=== PATIENT | male | born 1980 | race Caucasian/White ===

== ENCOUNTER → 2022-09-14 12:22 | Outpatient (CLI) | payer OTHER, MEDICAID, SELFPAY ==
[2022-09-15 08:11] LABS: Add Manual Diff / Slide Review NO; Basophils Absolute Auto 100 /uL (0-100); Basophils Percent Auto 1.8 % (0-2); Eosinophils Absolute Auto 200 /uL (0-450); Eosinophils Percent Auto 3.3 % (2-4); Hematocrit 43.4 % (41-53); Hemoglobin 14.9 g/dL (13.5-17.5); Lymphocytes Absolute Auto 1700 /uL (1100-4500); Lymphocytes Percent Auto 28.6 % (25-40); Mean Corpuscular HGB Conc 34.4 % (30-36); Mean Corpuscular Hemoglobin 33.9 PG (26-34); Mean Corpuscular Volume 98.6 fL (80-100); Monocytes Absolute Auto 500 /uL (0-900); Monocytes Percent Auto 8.5 % (3-14); Neutrophils Absolute Auto 3400 /uL (1500-7000); Neutrophils Percent Auto 57.8 % (50-75); Platelet Count 246 X10^3/uL (150-400); Red Cell Distribution Width 13.5 % (11.6-14.8); White Blood Cell Count 5.8 X10^3/uL (4.5-11.0)
[2022-09-15 08:18] LABS: BUN Creatinine Ratio 20.3 (6-22); Blood Urea Nitrogen 13 mg/dL (9-20); Calcium 9.6 mg/dL (8.4-10.2); Carbon Dioxide 27 mmol/L (22-32); Chloride 100 mmol/L (98-107); Cholesterol 202 mg/dL (140-199); Estimated Glomerular Filt Rate > 60 mL/min (>60); Glucose 76 mg/dL (70-100); HDL Cholesterol 104 mg/dL (40-60); HEMOLYSIS < 15 (0-50); LDL Cholesterol Calculated 86 mg/dL (<100); Sodium 141 mmol/L (137-145); Triglycerides 60 mg/dL (35-150)
[2022-09-15 09:59] LABS: Vitamin B12 280 pg/mL (239-931)
== END ==
PROVIDERS: PCP Family Medicine; Visit Provider Family Medicine
DX: G62.9 Polyneuropathy, unspecified (principal); Z13.1 Encounter for screening for diabetes mellitus; Z13.220 Encounter for screening for lipoid disorders; Z13.6 Encounter for screening for cardiovascular disorders
CPT/HCPCS: 80048; 80061; 82607; 85025

== ENCOUNTER 2023-05-16 15:22 | Emergency (ER) | payer OTHER, MEDICAID, SELFPAY ==
[2023-05-16 15:35] VITALS: BP 133/83; PULSE 89; RESP 18; TEMP 36.8; O2SAT 99; BMI 23.1
--- NOTE | 2023-05-16 15:40 | DI.RAD.S_ITS ---
PROCEDURE: XR KNEE RT 3V INDICATIONS: felt/heard a pop TECHNIQUE: 3 views of the knee were acquired. COMPARISON: None. FINDINGS: Bones: No fractures or dislocations. No suspicious bony lesions. Soft tissues: Small joint effusion. No suspicious soft tissue calcifications. IMPRESSION: No acute osseous abnormality. If pain persists with conservative management, consider repeat x-ray in 10-14 days or cross-sectional imaging. Dictated by: Tera Vasquez M.D. on 05/16/2023 at 16:22 Approved by: Tera Vasquez M.D. on 05/16/2023 at 16:23
[2023-05-16 17:40] VITALS: BP 124/78; PULSE 80; RESP 16; O2SAT 97
--- NOTE | 2023-05-16 19:01 | ED.LOWEXIN ---
HPI - Extremity Injury (Lower) General Chief Complaint: Extremity Injury, Lower Stated Complaint: RT KNEE INJURY Time Seen by Provider: 05/16/23 17:11 Source: patient Mode of arrival: other History of Present Illness HPI Narrative: Patient is a 42-year-old male who presents with a right knee injury. He was painting days ago while kneeling on the ground and moved his knee laterally when he felt 3 pops. Since then he has been trying to rest it and taking ibuprofen intermittently. Knee is quite swollen. It is very painful to walk. Has a history of similar knee injuries in the past that resolved on their own. His pain has been 8-9/10 over the past 4 days. He lives on [address] and attempted to see his primary care there, they referred him to [facility], suggesting he would need an MRI or CT scan. Related Data Previous Rx's Medication Instructions Recorded sulfamethoxazole 800 1 tab PO BID #10 tabs 02/28/23 mg-trimethoprim 160 mg tablet (Bactrim DS) cyclobenzaprine 10 mg tablet See Rx Instructions PO BEDTIME #60 05/09/23 tabs hydrocodone 5 mg-acetaminophen 325 1 tab PO Q4-6H PRN pain #14 tabs 05/16/23 mg tablet Allergies Allergy/AdvReac Type Severity Reaction Status Date / Time No Known Drug Allergies Allergy Verified 04/11/23 13:47 Review of Systems Review of Systems ROS Unobtainable: All systems reviewed & are unremarkable except as noted in HPI and below Patient History Medical History Sleep apnea Chronic cough Depression Seizures Restless leg syndrome Migraines Fractures Chronic back pain Carpal tunnel syndrome Tinnitus Retinal detachment Surgical History Anesthesia Suture of skin wound History of removal of cyst Suture of skin wound Family History Mother Cancer Grandfather Cancer Grandmother Cancer Social History Smoking Status: Current every day smoker Smoking Status: Current every day smoker tobacco type: cigarettes alcohol intake frequency: a few times a week Substance Use Type: does not use Exam Narrative Exam Narrative: GENERAL: 42 year old patient appears stated age. Well-developed patient, in no distress. NEURO: AOx3. HEAD: Atraumatic. Normocephalic. EYES: Pupils equal round and reactive. Extraocular motions intact. No scleral icterus. No injection or drainage. ENT: Nose without bleeding or purulent drainage. Airway patent. RESPIRATORY: No distress. EXTREMITIES: Significant edema of the right knee. Tenderness over the lateral joint line. Pain with extension and flexion, ambulation. Distal pulses, sensation and motor intact. SKIN: No rash or erythema of visible areas Initial Vital Signs Initial Vital Signs: Vital Signs Temperature 98.3 F 05/16/23 15:35 Pulse Rate 89 05/16/23 15:35 Respiratory Rate 18 05/16/23 15:35 Blood Pressure 133/83 05/16/23 15:35 Pulse Oximetry 99 05/16/23 15:35 Oxygen Delivery Method Room Air 05/16/23 15:35 Course Orders Ordered: ED Orders 05/16/23 15:40 XR knee RT 3V Stat Vital Signs Vital signs: Vital Signs - 8 hr 05/16/23 15:35 05/16/23 17:40 Temperature 98.3 F Pulse Rate 89 80 Respiratory Rate 18 16 Blood Pressure 133/83 124/78 Pulse Oximetry 99 97 Oxygen Delivery Method Room Air Room Air MDM - Extremity Injury (Lower) Imaging Data Extremity x-ray #1: Radiologist's Impression: PROCEDURE: XR KNEE RT 3V INDICATIONS: felt/heard a pop TECHNIQUE: 3 views of the knee were acquired. COMPARISON: None. FINDINGS: Bones: No fractures or dislocations. No suspicious bony lesions. Soft tissues: Small joint effusion. No suspicious soft tissue calcifications. IMPRESSION: No acute osseous abnormality. If pain persists with conservative management, consider repeat x-ray in 10-14 days or cross-sectional imaging. Dictated by: Tera Vasquez M.D. on 05/16/2023 at 16:22 Approved by: Tera Vasquez M.D. on 05/16/2023 at 16:23 [facility] Narrative Medical decision making narrative: Multiple etiologies for patient's symptoms considered including, but not limited to: Fracture, ligament sprain or tear, joint effusion. X-ray without any acute bony abnormality, does show joint effusion. Discussed management of non fracture orthopedic injuries with the patient and his significant other; to include rest, ice, NSAIDs, compression and reassessment. Placed in a knee immobilizer in the emergency room and reviewed pain medication dosages and prescriptions. Patient to follow up with PCP in 2 weeks for reassessment. Patient's symptoms improved over duration of stay with above-stated therapies. Findings and discharge diagnosis discussed with patient/family followed by verbalization of understanding Return precautions discussed with patient/family whom verbalize understanding of diagnosis and plan Discharge Plan Departure Patient Disposition: Home Clinical Impression: Soft tissue injury of right knee Qualifiers: Encounter type: initial encounter Qualified Code(s): S89.91XA - Unspecified injury of right lower leg, initial encounter Instructions: DI for Knee Sprain Activity Restrictions/Additional Instructions: *You have been diagnosed with soft tissue injury of right knee. This is likely a ligamentous injury. As we discussed, the 1st step is RICE, then reassessment by your primary care in approximately 2 weeks. At that point, a referral to physical therapy may be useful. Further evaluation with MRI may be indicated depending on recovery with conservative measures. You have been diagnosed with a musculoskeletal injury. You are advised to use R: rest. take it easy and listen to your body! I: ice. apply ice for 20 minutes every 2 hours while awake. Do not put ice directly on the skin. C: compression. Gentle compression with ernesto wrap or splint will decrease pain and swelling. E: elevation. Keep extremity elevated above the heart whenever possible. Use tylenol or ibuprofen for inflammation and pain. It is generally safe to take up to 3-4grams of tylenol in 24 hours, or 2400mg of ibuprofen in 24 hours. If you have questions about dosing or whether these medications are safe for you, please ask a healthcare provider. *What to do: *Please continue to take your regular medications as directed. [x] New medication prescriptions sent to your pharmacy: [facility] [ ] New medication written as a paper prescription [ ] No new medications given *Please follow up with your primary care provider in 2-3 days, call for an appointment. Let them know you were seen in the Emergency Department and that we ask that you be seen in follow up. We will electronically transmit a record of today's note if your PCP is in our system *If you do not have a primary care provider please contact the [facility] Resource line at [phone]. They will ask some questions about your medical history and help get you set up with a doctor in the community. *Return to Emergency Department if you should have any new, worsening or concerning symptoms, such as [fever greater than 101 F, shaking chills, worsening pain, persistent vomiting or other concerning symptoms]. Prescriptions: New hydrocodone-acetaminophen 5-325 mg tablet 1 tab PO Q4-6H PRN (Reason: pain) Qty: 14 0RF No Action sulfamethoxazole-trimethoprim [Bactrim DS] 800-160 mg tablet 1 tab PO BID Qty: 10 0RF cyclobenzaprine 10 mg tablet See Rx Instructions PO BEDTIME Qty: 60 0RF Rx Instructions: Take one half to one tablet before bed orally bedtime; Referrals: Sunny Romero MD [Primary Care Provider] - Stand Alone Forms: Patient Portal/API, Work Release Note
== END 2023-05-16 17:43 | disposition home or self-care (01) ==
PROVIDERS: Emergency Provider Physician Assistant; PCP Family Medicine
DX: S89.91XA Unspecified injury of right lower leg, initial encounter (principal); X58.XXXA Exposure to other specified factors, initial encounter
CPT/HCPCS: 73562; 99283

== ENCOUNTER → 2023-07-25 16:42 | Outpatient (CLI) | payer OTHER, MEDICAID, SELFPAY ==
--- NOTE | 2023-07-25 16:47 | DI.MRI.S_ITS ---
PROCEDURE: MR KNEE RT WO CON INDICATIONS: right knee pain TECHNIQUE: Noncontrast sagittal PD fast spin echo and T2 fast spin echo with fat saturation, sagittal 3-D FLASH with fat saturation; coronal T1 spin echo and PD fast spin echo with fat saturation, and axial PD fast spin echo with fat saturation through the knee. COMPARISON: Merged With [facility], CR, XR KNEE RT 3V, 05/16/2023, 15:57. FINDINGS: Image quality: Excellent. Menisci: There is ill defined tear of the body of the lateral meniscus. The medial meniscus is intact. The meniscal root ligaments appear intact. Cruciate ligaments: The anterior and posterior cruciate ligaments appear intact. Medial structures: The medial collateral ligament appears intact. The semimembranosus tendon insertions and meniscocapsular junction appear intact. Visualized portions of the pes anserinus tendons appear normal. No abnormal bursal fluid. Lateral structures: There is low-grade sprain of the proximal lateral collateral ligament. The long and short heads of the biceps femoris tendon are intact. The popliteus tendon appears normal. Iliotibial band appears normal. Anterior structures: The quadriceps and patellar tendons appear intact. Patellar alignment is normal. No femoral trochlear dysplasia or ventral trochlear prominence. No edema in the infrapatellar fat pad. Bones and cartilage: No bone marrow contusions or fractures. The cartilage of the medial and lateral femorotibial compartments, as well as the patellofemoral compartment, appears normal in thickness. Joint space: There is moderate knee joint effusion. There is a small Vázquez's cyst. Normal appearing synovial plicae are incidentally noted. IMPRESSION: 1. Tear of the body of the lateral meniscus. 2. Low-grade sprain of the lateral collateral ligament. 3. Moderate knee joint effusion. Dictated by: Ellie New M.D. on 07/26/2023 at 12:42 Approved by: Ellie New M.D. on 07/26/2023 at 21:33
== END ==
PROVIDERS: PCP Family Medicine; Referring Provider Family Medicine; Visit Provider Family Medicine
DX: S83.281A Other tear of lateral meniscus, current injury, right knee, initial encounter (principal); S83.421A Sprain of lateral collateral ligament of right knee, initial encounter; S83.8X1A Sprain of other specified parts of right knee, initial encounter; M25.461 Effusion, right knee
CPT/HCPCS: 73721

== ENCOUNTER 2024-01-03 15:36 | Emergency (ER) | payer OTHER, MEDICAID, SELFPAY ==
[2024-01-03 15:56] VITALS: BP 139/89; PULSE 131; RESP 18; TEMP 37.2; O2SAT 98; BMI 25.0
[2024-01-03 16:33] LABS: Ur Creatinine Normal (Normal); Ur Specific Gravity Normal (Normal); Urine Tetrahydrocannabinol Negative (Negative); Urine pH Normal (Normal)
[2024-01-03 16:34] LABS: UR Morphine/Opiate cutoff 300 Negative (Negative); Urine Amphetamines Negative (Negative); Urine Barbiturates Negative (Negative); Urine Benzodiazepines Positive (Negative); Urine Cocaine Negative (Negative); Urine MDMA Negative (Negative); Urine Methadone Negative (Negative); Urine Methamphetamines Negative (Negative); Urine Oxycodone Negative (Negative); Urine Phencyclidine Negative (Negative); Urine Tricyclic Antidepressant Negative (Negative)
[2024-01-03 16:40] LABS: Add Manual Diff / Slide Review NO; Basophils Absolute Auto 100 /uL (0-100); Basophils Percent Auto 0.7 % (0-2); Eosinophils Absolute Auto 0 /uL (0-450); Eosinophils Percent Auto 0.3 % (2-4); Hemoglobin 14.4 g/dL (13.5-17.5); Lymphocytes Absolute Auto 800 /uL (1100-4500); Lymphocytes Percent Auto 10.7 % (25-40); Mean Corpuscular HGB Conc 34.2 % (30-36); Mean Corpuscular Hemoglobin 34.5 PG (26-34); Mean Corpuscular Volume 100.8 fL (80-100); Monocytes Absolute Auto 1100 /uL (0-900); Monocytes Percent Auto 13.4 % (3-14); Neutrophils Absolute Auto 6000 /uL (1500-7000); Neutrophils Percent Auto 74.9 % (50-75); Platelet Count 96 X10^3/uL (150-400); Red Blood Cell Count 4.17 X10^6/uL (4.5-5.9); Red Cell Distribution Width 13.3 % (11.6-14.8)
[2024-01-03 16:46] LABS: Appearance Urine UA CLEAR; Bilirubin Urine UA 1+ (NEGATIVE); Color Urine UA YELLOW; Glucose Urine UA NEGATIVE (Negative); Ketones Urine UA 2+ (NEGATIVE); Leukocyte Esterase Urine UA NEGATIVE (NEGATIVE); Nitrite Urine UA NEGATIVE (Negative); Occult Blood Urine UA NEGATIVE (Negative); Protein Urine UA 1+ (Negative); Specific Gravity Urine UA 1.015 (1.000-1.035)
[2024-01-03] MEDS: PHENobarbital 65 MG/ML VIAL 260 MG IV (16:46)
[2024-01-03 16:51] LABS: Alanine Aminotransferase 95 IU/L (<50); Albumin 5.4 g/dL (3.5-5.0); Albumin Globulin Ratio 1.6 (1.0-2.8); Alkaline Phosphatase 67 U/L (38-126); Aspartate Aminotransferase 127 IU/L (17-59); BUN Creatinine Ratio 20.3 (6-22); Bilirubin Total 2.4 mg/dL (0.2-1.3); Blood Urea Nitrogen 12 mg/dL (9-20); Calcium 8.9 mg/dL (8.4-10.2); Carbon Dioxide 18 mmol/L (22-32); Chloride 102 mmol/L (98-107); Estimated Glomerular Filt Rate > 60 mL/min (>60); Ethanol (ETOH) < 10 mg/dL; Globulin 3.3 g/dL (1.7-4.1); Glucose 78 mg/dL (70-100); HEMOLYSIS 351 (0-50); Potassium 5.8 mmol/L (3.4-5.1); Sodium 134 mmol/L (137-145); Total Protein 8.7 g/dL (6.3-8.2)
[2024-01-03 16:55] LABS: Bacteria Urine Occasional (0-1); RBC Urine None Seen (0-5/HPF); Renal Epithelial Cells Urine 1-5/HPF (0-1/HPF); Squamous Epithelial Cell Urine 5-10 /HPF (0-5/HPF); Urine Volume 10mL (spun); WBC Urine 5-10/HPF (0-5/HPF)
[2024-01-03 16:56] LABS: Culture Indicated Urine Specimen Cultured; Mucus Urine 3+ (Negative)
[2024-01-03 16:58] LABS: Ictotest Urine Positive (Negative)
[2024-01-03] MEDS: THIAMINE 200 MG in SODIUM CHLORIDE 0.9% 100 ML 408 MG IV (17:57)
[2024-01-03] MEDS: LORazepam 2 MG/ML INJ 1 MG IV (17:57)
[2024-01-03 18:00] VITALS: BP 152/97; PULSE 103; RESP 22; O2SAT 100
[2024-01-03 18:09] LABS: Creatine Kinase 591 U/L (55-170); Lipase 48 U/L (23-300)
[2024-01-03 18:09] LABS: Lactate (Lactic Acid) 0.8 mmol/L (0.7-2.1)
[2024-01-03 18:22] LABS: Troponin I 0.029 ng/mL (0.01-0.034)
[2024-01-03] MEDS: PHENobarbital 65 MG/ML VIAL 130 MG IV (18:35)
--- NOTE | 2024-01-03 18:56 | ED_ITS ---
HPI - General Adult General Chief complaint: Toxicology Problem Stated complaint: ETOH withdrawl Time Seen by Provider: 01/03/24 16:34 Source: patient Mode of arrival: Ambulatory History of Present Illness HPI narrative: Patient is a 43-year-old male who is here for evaluation of alcohol withdrawal. He was reported that earlier this week the patient checked himself in to [facility] detox. Has been there for the past couple days however sometime within the past 24 hours left the detox facility. Initially it was reported the patient left against medical advice however there also had some reports that the patient asked to leave and he was subsequently discharged. He was reported that he walked from [place] to the local area. He states his last drink was vent least 3 days ago. He denies any other drugs. Here in the emergency department he reports that he is hallucinating. Is tachycardic. Initially had a CIWA in the 20 range. He states he has withdrawn from alcohol in the past. Apparently has had seizures in the past from alcohol withdrawal. Related Data Previous Rx's Medication Instructions Recorded sulfamethoxazole 800 1 tab PO BID #10 tabs 02/28/23 mg-trimethoprim 160 mg tablet (Bactrim DS) hydrocodone 5 mg-acetaminophen 325 1 tab PO Q4-6H PRN pain #14 tabs 05/16/23 mg tablet cyclobenzaprine 10 mg tablet See Rx Instructions PO BEDTIME #60 10/17/23 tabs Allergies Allergy/AdvReac Type Severity Reaction Status Date / Time No Known Drug Allergies Allergy Verified 08/02/23 08:47 Review of Systems Review of Systems Narrative: See HPI Patient History Medical History Sleep apnea Depression Seizures Restless leg syndrome Migraines Fractures Chronic back pain Carpal tunnel syndrome Tinnitus Retinal detachment Surgical History Anesthesia Suture of skin wound History of removal of cyst Suture of skin wound Family History Mother Cancer Grandfather Cancer Grandmother Cancer Social History Smoking Status: Current every day smoker Smoking Status: Current every day smoker tobacco type: cigarettes alcohol intake frequency: 0-2 drinks per day Alcohol type: hard liquor Substance Use Type: does not use Exam Initial Vital Signs Initial Vital Signs: Vital Signs Temperature 99.0 F 01/03/24 15:56 Pulse Rate 131 H 01/03/24 15:56 Respiratory Rate 18 01/03/24 15:56 Blood Pressure 139/89 01/03/24 15:56 Pulse Oximetry 98 01/03/24 15:56 Oxygen Delivery Method Room Air 01/03/24 15:56 HENMT Head: normal to inspection and normocephalic Mouth: moist mucous membranes Resp Effort & Inspection: not labored, no respiratory distress and tachypneic Cardio Rate: tachycardic Skin Other: Skin abrasions on the bottoms of both of his feet. Neuro General: patient alert, patient awake and moves all extremities Speech: speech normal Extrem General: capillary refill normal Psych Other: Patient is disheveled. Appears to be hallucinating. Scores GCS [place] coma scale eye opening: Spontaneous [place] coma scale verbal response: Orientated [place] coma scale motor response: Obey commands [place] coma scale total score: 15 Course Orders Ordered: ED Orders 01/03/24 16:12 Ictotest Urine Stat UA Complete [Urinalysis and Microscopic] Stat Urine Culture Stat Urine Drug Screen, Rapid Stat 01/03/24 16:14 EKG-12 Lead Stat 01/03/24 16:24 Complete Blood Count AUTO DIFF Stat Comprehensive Metabolic Panel Stat Ethanol (ETOH) Stat Folate Stat Lactate (Lactic Acid) Stat 01/03/24 16:34 Lipase Stat Troponin & CK Cardiac Panel Stat 01/03/24 18:26 Consult to [facility] [place] [employer] Stat Discontinued Medications Thiamine HCl 200 mg/ Sodium (Chloride) 102 mls @ 408 mls/hr IV NOW ONE Stop: 01/03/24 17:44 Last Infusion: 01/03/24 18:34 Dose: Infused Documented By: Admin: 01/03/24 17:57 Dose: 408 mls/hr Documented By: JIN Lorazepam (Lorazepam 2 Mg/Ml Inj) 1 mg IV NOW ONE Stop: 01/03/24 17:44 Last Admin: 01/03/24 17:57 Dose: 1 mg Documented By: JIN Lorazepam (Lorazepam 2 Mg/Ml Inj) 2 mg IV NOW ONE Stop: 01/03/24 18:48 Last Admin: 01/03/24 18:57 Dose: 2 mg Documented By: JIN Phenobarbital (Phenobarbital 65 Mg/Ml Vial) 260 mg IV NOW ONE Stop: 01/03/24 16:35 Last Admin: 01/03/24 16:46 Dose: 260 mg Documented By: JIN Phenobarbital (Phenobarbital 65 Mg/Ml Vial) 130 mg IV NOW ONE Stop: 01/03/24 18:28 Last Admin: 01/03/24 18:35 Dose: 130 mg Documented By: JIN Vital Signs Vital signs: Vital Signs - 8 hr 01/03/24 15:56 01/03/24 18:00 Temperature 99.0 F Pulse Rate 131 H 103 H Respiratory Rate 18 22 Blood Pressure 139/89 152/97 H Pulse Oximetry 98 100 Oxygen Delivery Method Room Air Medical Decision Making Lab Data Lab results reviewed: Yes I reviewed the patient's lab results. 01/03/24 16:24 01/03/24 16:24 Labs: Lab Results 01/03/24 01/03/24 01/03/24 Range/Units 16:12 16:12 16:24 WBC 8.0 (4.5-11.0) X10^3/uL RBC 4.17 L (4.5-5.9) X10^6/uL Hgb 14.4 (13.5-17.5) g/dL Hct 42.0 (41-53) % MCV 100.8 H (80-100) fL MCH 34.5 H (26-34) PG MCHC 34.2 (30-36) % RDW 13.3 (11.6-14.8) % Plt Count 96 L (150-400) X10^3/uL Neut % (Auto) 74.9 (50-75) % Lymph % (Auto) 10.7 L (25-40) % [place] % (Auto) 13.4 (3-14) % Eos % (Auto) 0.3 L (2-4) % Baso % (Auto) 0.7 (0-2) % Neut # (Auto) 6000 (9951-9288) /uL Lymph # (Auto) 800 L (8569-4077) /uL [place] # (Auto) 1100 H (0-900) /uL Eos # (Auto) 0 (0-450) /uL Baso # (Auto) 100 (0-100) /uL Sodium 134 L (137-145) mmol/L Potassium 5.8 H (3.4-5.1) mmol/L Chloride 102 (98-107) mmol/L Carbon Dioxide 18 L (22-32) mmol/L BUN 12 (9-20) mg/dL Creatinine 0.59 L (0.66-1.25) mg/dL Estimated GFR > 60 (>60) mL/min BUN/Creatinine Ratio 20.3 (6-22) Glucose 78 (70-100) mg/dL Lactate 0.8 (0.7-2.1) mmol/L Calcium 8.9 (8.4-10.2) mg/dL Total Bilirubin 2.4 H (0.2-1.3) mg/dL AST 127 H (17-59) IU/L ALT 95 H (<50) IU/L Alkaline Phosphatase 67 (38-126) U/L Total Creatine Kinase Cancelled Troponin I (0.01-0.034) ng/mL Total Protein 8.7 H (6.3-8.2) g/dL Albumin 5.4 H (3.5-5.0) g/dL Globulin 3.3 (1.7-4.1) g/dL Albumin/Globulin Ratio 1.6 (1.0-2.8) Lipase (23-300) U/L Folate > 20.0 H (2.76-20.0) ng/mL Urine Color Yellow Urine Appearance Clear Urine pH 7.0 Normal (4.5-8.0) Ur Specific [place] 1.015 (1.000-1.035) Urine Protein 1+ H (Negative) Urine Glucose (UA) Negative (Negative) g/dL Urine Ketones 2+ H (NEGATIVE) Urine Occult Blood Negative (Negative) Urine Nitrate Negative (Negative) Urine Bilirubin 1+ H (NEGATIVE) Ur Bilirubin Confirm Positive H (Negative) Urine Urobilinogen 1.0 (0.2) E.U./dL Ur Leukocyte Esterase Negative (NEGATIVE) Urine RBC None seen (0-5/HPF) Urine WBC 5-10/hpf H (0-5/HPF) Ur Squamous Epith Cells 5-10 /hpf H (0-5/HPF) Ur Renal Epithelial Cell 1-5/hpf H (0-1/HPF) Urine Bacteria Occasional (0-1) (None) Urine Mucus 3+ H (Negative) Ur Culture Indicated? Specimen cultured Vol Urine Centrifuged 10ml (spun) U Opiates 300ng/mL cut Negative (Negative) Ur Oxycodone Screen Negative (Negative) Urine Methadone Screen Negative (Negative) Ur Barbiturates Screen Negative (Negative) U Tricyclic Antidepress Negative (Negative) Ur Phencyclidine Scrn Negative (Negative) Ur Amphetamines Screen Negative (Negative) U Methamphetamines Scrn Negative (Negative) Ur MDMA Scrn (Ecstasy) Negative (Negative) U Benzodiazepines Scrn Positive H (Negative) Urine Cocaine Screen Negative (Negative) U Marijuana (THC) Screen Negative (Negative) Urine Specific [place] Normal (Normal) Ethyl Alcohol < 10 ( - 10) mg/dL Ur Creatinine Normal (Normal) 01/03/24 Range/Units 16:34 WBC (4.5-11.0) X10^3/uL RBC (4.5-5.9) X10^6/uL Hgb (13.5-17.5) g/dL Hct (41-53) % MCV (80-100) fL MCH (26-34) PG MCHC (30-36) % RDW (11.6-14.8) % Plt Count (150-400) X10^3/uL Neut % (Auto) (50-75) % Lymph % (Auto) (25-40) % [place] % (Auto) (3-14) % Eos % (Auto) (2-4) % Baso % (Auto) (0-2) % Neut # (Auto) (2548-6506) /uL Lymph # (Auto) (8625-6918) /uL [place] # (Auto) (0-900) /uL Eos # (Auto) (0-450) /uL Baso # (Auto) (0-100) /uL Sodium (137-145) mmol/L Potassium (3.4-5.1) mmol/L Chloride (98-107) mmol/L Carbon Dioxide (22-32) mmol/L BUN (9-20) mg/dL Creatinine (0.66-1.25) mg/dL Estimated GFR (>60) mL/min BUN/Creatinine Ratio (6-22) Glucose (70-100) mg/dL Lactate (0.7-2.1) mmol/L Calcium (8.4-10.2) mg/dL Total Bilirubin (0.2-1.3) mg/dL AST (17-59) IU/L ALT (<50) IU/L Alkaline Phosphatase (38-126) U/L Total Creatine Kinase 591 H Troponin I 0.029 (0.01-0.034) ng/mL Total Protein (6.3-8.2) g/dL Albumin (3.5-5.0) g/dL Globulin (1.7-4.1) g/dL Albumin/Globulin Ratio (1.0-2.8) Lipase 48 (23-300) U/L Folate (2.76-20.0) ng/mL Urine Color Urine Appearance Urine pH (4.5-8.0) Ur Specific [place] (1.000-1.035) Urine Protein (Negative) Urine Glucose (UA) (Negative) g/dL Urine Ketones (NEGATIVE) Urine Occult Blood (Negative) Urine Nitrate (Negative) Urine Bilirubin (NEGATIVE) Ur Bilirubin Confirm (Negative) Urine Urobilinogen (0.2) E.U./dL Ur Leukocyte Esterase (NEGATIVE) Urine RBC (0-5/HPF) Urine WBC (0-5/HPF) Ur Squamous Epith Cells (0-5/HPF) Ur Renal Epithelial Cell (0-1/HPF) Urine Bacteria (None) Urine Mucus (Negative) Ur Culture Indicated? Vol Urine Centrifuged U Opiates 300ng/mL cut (Negative) Ur Oxycodone Screen (Negative) Urine Methadone Screen (Negative) Ur Barbiturates Screen (Negative) U Tricyclic Antidepress (Negative) Ur Phencyclidine Scrn (Negative) Ur Amphetamines Screen (Negative) U Methamphetamines Scrn (Negative) Ur MDMA Scrn (Ecstasy) (Negative) U Benzodiazepines Scrn (Negative) Urine Cocaine Screen (Negative) U Marijuana (THC) Screen (Negative) Urine Specific [place] (Normal) Ethyl Alcohol ( - 10) mg/dL Ur Creatinine (Normal) Urine Dip Bedside Urine Glucose Negative Bedside Urine Bilirubin - Negative Bedside Urine Ketone +++ 80 Urine Specific [place] 1.015 Bedside Urine Occult Blood - Negative Bedside Urine pH 6.5 Bedside Urine Protein + 30 Bedside Urine Urobilinogen - Negative Bedside Urine Nitrite - Negative Bedside Urine Leukocytes +/- 15 Esterase Point of care testing: Urine Dip Bedside Urine Glucose Negative Bedside Urine Bilirubin - Negative Bedside Urine Ketone +++ 80 Urine Specific [place] 1.015 Bedside Urine Occult Blood - Negative Bedside Urine pH 6.5 Bedside Urine Protein + 30 Bedside Urine Urobilinogen - Negative Bedside Urine Nitrite - Negative Bedside Urine Leukocytes +/- 15 Esterase ECG Data Attestation: I personally reviewed and interpreted this ECG as follows: Interpretation: Sinus tachycardia Ventricular rate 104 Normal axis Normal QRS Normal QTC No ST T wave changes MDM Narrative Medical decision making narrative: Somewhat difficult to obtain a exact HPI. Unsure exactly why he left the detox facility within the past 24 hours. Apparently the patient has been walking for the past 24 hours. He was not in rhabdo. He was obviously withdrawing from alcohol. Is having hallucinations but is alert and oriented. Was given multiple doses of phenobarbital. Also given multiple doses of Ativan. There was mixed responses as to whether or not he was interested in detox once again. The plan was to start the process here in the emergency department to help with his withdrawal symptoms however during this time the patient left the emergency department. He was not discharged by myself. I did not have discussions with him regarding the risks and benefits of leaving the emergency department and his current state. Patient eloped. Discharge Plan Departure Patient Disposition: Elopement Clinical Impression: Alcohol withdrawal Prescriptions: No Action cyclobenzaprine 10 mg tablet See Rx Instructions PO BEDTIME Qty: 60 0RF Rx Instructions: Take one half to one tablet before bed orally bedtime; hydrocodone-acetaminophen 5-325 mg tablet 1 tab PO Q4-6H PRN (Reason: pain) Qty: 14 0RF sulfamethoxazole-trimethoprim [Bactrim DS] 800-160 mg tablet 1 tab PO BID Qty: 10 0RF Referrals: Sunny Romero MD [Primary Care Provider] - Stand Alone Forms: Patient Portal/API, Against Medical Advice
[2024-01-03] MEDS: LORazepam 2 MG/ML INJ IV (18:57)
--- NOTE | 2024-01-03 19:12 | PC.NURSE ---
Pt uncooperative w/ visit. aware. Pt consistently took off heart monitor and pulse ox. HR (when monitored) did not exceed 116bpm, O2 100% RA, BP 150s sys. Pt left AMA w/o signing papers; aware. IV out. Pt and visitor given dc instructions on to call 911 w/ concerns.
[2024-01-03 19:16] LABS: Folate > 20.0 ng/mL (2.76-20.0)
--- NOTE | 2024-01-03 19:27 | PC.NURSE ---
Pt given snack.
== END 2024-01-03 19:16 | disposition left against medical advice (07) ==
PROVIDERS: Emergency Medicine; Emergency Provider Emergency Medicine; PCP Family Medicine
DX: F10.239 Alcohol dependence with withdrawal, unspecified (principal); R44.3 Hallucinations, unspecified; Z53.29 Procedure and treatment not carried out because of patient's decision for other reasons; R00.0 Tachycardia, unspecified; Y90.0 Blood alcohol level of less than 20 mg/100 ml
CPT/HCPCS: 36415; 80053; 80305; 80320; 81001; 81003; 82550; 82746; 83605; 83690; 84484; 85025; 87086; 93005; 96365; 96375; 96376; 99284; J2060; J2560

== ENCOUNTER → 2025-01-21 14:48 | Outpatient (CLI) | payer OTHER, SELFPAY ==
--- NOTE | 2025-01-21 14:49 | DI.CT.S_ITS ---
PROCEDURE: CT CHEST W CON INDICATIONS: cough, mass left upper lobe, smoker, weigth loss TECHNIQUE: After the administration of intravenous contrast, 5 mm thick sections acquired from the pulmonary apices to the posterior costophrenic angles. 1 mm axial lung, 5 mm thick coronal and sagittal reformats and 7 mm axial MIP were acquired. For radiation dose reduction, the following was used: automated exposure control, adjustment of mA and/or kV according to patient size. COMPARISON: [facility] ([place]), CR, XR CHEST 2V, 01/07/2025, 16:14. FINDINGS: Image quality: Diagnostic. Lower Neck: No enlarged lymph nodes. Thyroid: No thyroid nodules which require sonographic follow up, per consensus guidelines. Axillae: No enlarged lymph nodes. Chest Wall: Unremarkable. Bones: Unremarkable. Lungs and Pleura: No left upper lobe mass is seen. Within the right upper lobe, there is a partially calcified 3 mm nodule, as on series 3, image 84. No pneumothorax or pleural effusions. Heart: Heart size is normal. No pericardial effusion. Thoracic Vessels: The aorta and pulmonary arteries demonstrate normal size. Mediastinum and Tanvi: No enlarged lymph nodes. Esophagus: No wall thickening. No hiatal hernia. Upper Abdomen: Diffuse fatty liver infiltration is noted. The visualized portions of the upper abdominal structures are otherwise unremarkable for imaging technique. IMPRESSION: No left upper lobe mass is seen. No imaging explanation is found for this patient's presenting symptoms. Partially calcified right upper lobe nodule seen, measuring 3 mm. For a nodule of this size, no specific imaging follow-up is recommended by published criteria, although attention should be paid to this focus on any future follow-up studies. Additional findings: Fatty liver infiltration Dictated by: Billy Interiano M.D. on 01/21/2025 at 14:41 Approved by: Billy Interiano M.D. on 01/21/2025 at 14:44
== END ==
PROVIDERS: PCP Family Medicine; Referring Provider Physician Assistant; Visit Provider Physician Assistant
DX: R91.8 Other nonspecific abnormal finding of lung field (principal); R05.9 Cough, unspecified; R63.4 Abnormal weight loss; R05.3 Chronic cough; F17.200 Nicotine dependence, unspecified, uncomplicated; Z87.01 Personal history of pneumonia (recurrent)
CPT/HCPCS: 71260; Q9967

== ENCOUNTER → 2025-02-03 14:30 | Outpatient (CLI) | payer OTHER, SELFPAY ==
[2025-02-03 19:23] LABS: Add Manual Diff / Slide Review NO; Alanine Aminotransferase 69 IU/L (<50); Albumin 4.9 g/dL (3.5-5.0); Albumin Globulin Ratio 1.6 (1.0-2.8); Alkaline Phosphatase 103 U/L (38-126); Aspartate Aminotransferase 143 IU/L (17-59); Basophils Absolute Auto 100 /uL (0-100); Basophils Percent Auto 2.7 % (0-2); Bilirubin Total 0.7 mg/dL (0.2-1.3); Blood Urea Nitrogen 14 mg/dL (9-20); Calcium 9.2 mg/dL (8.4-10.2); Carbon Dioxide 25 mmol/L (22-32); Chloride 99 mmol/L (98-107); Eosinophils Absolute Auto 100 /uL (0-450); Eosinophils Percent Auto 2.7 % (2-4); Estimated Glomerular Filt Rate > 60 mL/min (>60); Globulin 3.1 g/dL (1.7-4.1); Glucose 102 mg/dL (70-99); HEMOLYSIS < 15 (0-50); Hematocrit 39.4 % (41-53); Hemoglobin 13.8 g/dL (13.5-17.5); Lipase 166 U/L (23-300); Lymphocytes Absolute Auto 1500 /uL (1100-4500); Lymphocytes Percent Auto 30.4 % (25-40); Mean Corpuscular HGB Conc 34.9 % (30-36); Mean Corpuscular Hemoglobin 35.3 PG (26-34); Mean Corpuscular Volume 101.2 fL (80-100); Monocytes Absolute Auto 600 /uL (0-900); Monocytes Percent Auto 11.9 % (3-14); Neutrophils Absolute Auto 2600 /uL (1500-7000); Neutrophils Percent Auto 52.3 % (50-75); Platelet Count 98 X10^3/uL (150-400); Potassium 4.1 mmol/L (3.4-5.1); Red Blood Cell Count 3.89 X10^6/uL (4.5-5.9); Red Cell Distribution Width 14.3 % (11.6-14.8); Sodium 138 mmol/L (137-145); White Blood Cell Count 4.9 X10^3/uL (4.5-11.0)
[2025-02-03 19:55] LABS: TSH w/ Reflex to FT4 1.02 uIU/mL (0.47-4.68)
[2025-02-03 20:14] LABS: Vitamin B12 625 pg/mL (239-931)
== END ==
PROVIDERS: PCP Family Medicine; Visit Provider Family Medicine
DX: F19.90 Other psychoactive substance use, unspecified, uncomplicated (principal); M54.9 Dorsalgia, unspecified; G89.29 Other chronic pain; F33.1 Major depressive disorder, recurrent, moderate; R05.3 Chronic cough; F51.01 Primary insomnia; G62.1 Alcoholic polyneuropathy; F17.200 Nicotine dependence, unspecified, uncomplicated; G47.30 Sleep apnea, unspecified; R63.4 Abnormal weight loss
CPT/HCPCS: 80053; 82607; 83690; 84443; 85025